=== PATIENT | male | born 1975 | race Caucasian/White ===

== ENCOUNTER 2024-04-10 23:00 | Emergency (ER) | payer BC, SELFPAY ==
--- NOTE | ~2024-04-10 | XR_ITS ---
CLINICAL HISTORY: cp 2 view chest x-ray Comparison: None Findings: The lungs are clear. Heart size is normal. No acute fracture. IMPRESSION: 1. No acute findings. This document has been electronically signed by: Fernando Vega MD on 04/11/2024 00:07:53
--- NOTE | 2024-04-10 23:03 | ECG_ITS ---
Test Reason : CHEST PAIN Blood Pressure : / mmHG Vent. Rate : 079 BPM Atrial Rate : 079 BPM P-R Int : 130 ms QRS Dur : 080 ms QT Int : 350 ms P-R-T Axes : 055 010 -11 degrees QTc Int : 401 ms Normal sinus rhythm Normal ECG No previous ECGs available Referred By: Generic ED Physician Electronically Signed By:JOAQUIN MCNULTY MD
[2024-04-10 23:09] VITALS: BP 171/102; PULSE 90; RESP 20; TEMP 36.6; O2SAT 99; BMI 28.2
[2024-04-10 23:27] LABS: MANUAL DIFF FLAG NO
[2024-04-10 23:28] LABS: Basophils Absolute Auto 0.1 X10*3/uL (0.0-0.2); Basophils Percent Auto 0.9 % (0-2); Eosinophils Absolute Auto 0.2 X10*3/uL (0.0-0.4); Hematocrit 45.2 % (42.0-52.0); Hemoglobin 15.9 g/dl (14.0-18.0); Imm Gran Abs Auto 0.04 X10*3/uL (0.00-0.03); Imm Gran Pct Auto 0.5 % (0.0-0.4); Lymphocytes Absolute Auto 3.2 X10*3/uL (1.2-4.9); Lymphocytes Percent Auto 40.9 % (20-40); Mean Corpuscular HGB Conc 35.2 g/dl (31.0-36.0); Mean Corpuscular Hemoglobin 29.2 pg (27.0-33.0); Mean Corpuscular Volume 82.9 fL (80.0-98.0); Mean Platelet Volume 10.4 fL (9.4-12.4); Monocytes Absolute Auto 0.5 X10*3/uL (0.1-1.2); Monocytes Percent Auto 6.8 % (2-11); Neutrophils Absolute Auto 3.8 x10*3/uL (2.0-8.3); Neutrophils Percent Auto 47.9 % (45-73); Platelet Count 203 X10*3/uL (160-400); Red Blood Count 5.45 X10*6/uL (4.60-5.80); Red Cell Distribution Width 13.6 % (11.0-16.0); White Blood Count 7.9 X10*3/uL (4.8-10.8)
[2024-04-10 23:48] LABS: Troponin-I High Sensitivity 35.1 ng/L (<3.5-35.0)
--- NOTE | 2024-04-10 23:59 | ED.CHESTPAIN ---
HPI - Chest Pain General Chief Complaint: Chest Pain Stated Complaint: Chest Pain Time Seen by Provider: 04/10/24 23:36 Source: patient Mode of arrival: ambulatory Limitations: no limitations History of Present Illness ED Provider: HPI narrative: Patient no significant past medical history noticed acute onset of sharp pain just prior to arrival while patient is trying to lay down lasted only for few seconds happened several times no diaphoresis no jaw pain or arm pain nausea no vomiting pain was worse with movements and deep inspiration patient does not have any cough or shortness a breath never had similar chest pain in the past Related Data Allergies Allergy/AdvReac Type Severity Reaction Status Date / Time No Known Allergies Allergy Unverified 04/10/24 23:11 [No Known Allergies*] Review of Systems Review of Systems: Yes all other systems are reviewed and are negative [facility] Social History Social History Advance Directives: No Advance Directives Information Provided: Yes Physical Exam Vital Signs: Vital Signs: Last Vital Signs Temp 98.7 F 04/11/24 02:15 Pulse 88 04/11/24 02:15 Resp 18 04/11/24 02:15 BP 125/77 04/11/24 02:15 Pulse Ox 99 04/11/24 02:15 O2 Del Method Room Air 04/11/24 02:15 BMI result Body Mass Index 28.2 Appearance: Alert. Oriented X3. No acute distress. Eyes: No pallor or icterus ENT: Pharynx normal. Oral Mucosa moist Neck: Normal inspection. Neck supple. CVS: Normal heart rate and rhythm. Pulses normal. No murmur rub or gallop no pericardial rub Respiratory: No respiratory distress. Equal air entry bilateral, no wheezing/rales/rhonchi Abdomen: Soft and nontender. Bowel sounds are present, Skin: Skin warm and dry. Normal skin color. Normal skin turgor. Extremities: No lower extremity edema. No calf tenderness Neuro: Oriented X 3. No motor deficit. Medications Administered Discontinued Medications Generic Name Dose Route Start Last Admin Trade Name Freq PRN Reason Stop Dose Admin Aspirin 162 mg 04/11/24 00:05 04/11/24 00:31 Aspirin 81 Mg Tab.Chew PO 04/11/24 00:06 162 mg ONCE ONE Administration Medical Decision Making Medical Decision Making [facility] Narrative: Patient has atypical chest pain with normal cardiogram initial troponin was elevated to 35.1 likely troponin leak will repeat the troponin patient does not have any chest pain at this time will give baby aspirin heart score is [address] [facility] Lab Attestation statement: I reviewed the patient's lab results. 04/10/24 23:23 04/10/24 23:23 Labs: Lab Results 04/10/24 04/11/24 Range/Units 23:23 01:38 WBC 7.9 (4.8-10.8) X10*3/uL RBC 5.45 (4.60-5.80) X10*6/uL Hgb 15.9 (14.0-18.0) g/dl Hct 45.2 (42.0-52.0) % MCV 82.9 (80.0-98.0) fL MCH 29.2 (27.0-33.0) pg MCHC 35.2 (31.0-36.0) g/dl RDW 13.6 (11.0-16.0) % Plt Count 203 (160-400) X10*3/uL MPV 10.4 (9.4-12.4) fL Immature Gran % (Auto) 0.5 H (0.0-0.4) % Neut % (Auto) 47.9 (45-73) % Lymph % (Auto) 40.9 H (20-40) % [place] % (Auto) 6.8 (2-11) % Eos % (Auto) 3.0 (0-4) % Baso % (Auto) 0.9 (0-2) % Lymph # (Auto) 3.2 (1.2-4.9) X10*3/uL [place] # (Auto) 0.5 (0.1-1.2) X10*3/uL Eos # (Auto) 0.2 (0.0-0.4) X10*3/uL Baso # (Auto) 0.1 (0.0-0.2) X10*3/uL Abs Immat Gran (auto) 0.04 H (0.00-0.03) X10*3/uL Absolute Neuts (auto) 3.8 (2.0-8.3) x10*3/uL Absolute Nucleated RBC 0.000 (0.0-0.012) X10*3/uL Nucleated RBC % (auto) 0.0 (0.0-0.2) /100WBC Sodium 141 (135-145) mmol/L Potassium 4.2 (3.3-5.1) mmol/L Chloride 112 H (96-108) mmol/L Carbon Dioxide 19 L (22-29) mmol/L Anion Gap 14 (12-20) BUN 20 H (9-16) mg/dL Creatinine 0.93 (0.5-1.4) mg/dL Estim Creat Clear Calc 105.8 Estimated GFR > 60 Random Glucose 119 H (60-115) mg/dL Calcium 8.7 (8.4-10.2) mg/dL Total Bilirubin 0.4 (0.0-1.0) mg/dL AST 39 H (5-37) U/L ALT 62 H (0-40) U/L Alkaline Phosphatase 82 (39-117) U/L Troponin I High Sens 35.1 H 36.9 H (<3.5-35.0) ng/L Total Protein 7.1 (6.5-8.0) g/dL Albumin 4.2 (3.5-5.0) g/dL Independent Interpretation I performed an independent interpretation of an: EKG Interpretation: Normal sinus rhythm heart rate 79 beats minute normal intervals no acute ST-T changes no acute ischemia Scores Heart Score History: -0- slightly suspicious ECG: -0- normal Age: -1- >45 - <65 Risk factory: -0- no risk factors known Troponin: -1- >1 - <3x normal limit Score: 2 Risk: 1.7% Discharge Plan Discharge Clinical Impression: Chest pain Patient Disposition: Home, Self-Care Instructions: Chest Pain (ED) Additional Instructions: Cause of your chest pain is not clear likely musculoskeletal/pleuritic Follow with your PCP for further managed Follow with financial supervisor Referrals: Parish Cook MD [Physician] - 1 week Interventions: ED Discharge Assessment Last Done: 04/11/24 02:15 Discharge Date/Time: 04/11/24 02:17 Print Language: [place]
[2024-04-11 00:02] LABS: Alanine Aminotransferase 62 U/L (0-40); Albumin Level 4.2 g/dL (3.5-5.0); Alkaline Phosphatase 82 U/L (39-117); Anion Gap 14 (12-20); Aspartate Amino Transferase 39 U/L (5-37); Bilirubin Total 0.4 mg/dL (0.0-1.0); Blood Urea Nitrogen 20 mg/dL (9-16); Calcium 8.7 mg/dL (8.4-10.2); Carbon Dioxide 19 mmol/L (22-29); Chloride 112 mmol/L (96-108); Creatinine Clr Calc Pharmacy 105.8; Estimated Glomerular Filt Rate > 60; Glucose Random 119 mg/dL (60-115); Potassium 4.2 mmol/L (3.3-5.1); Sodium 141 mmol/L (135-145); Total Protein 7.1 g/dL (6.5-8.0)
[2024-04-11 00:06] VITALS: BP 125/77; PULSE 77; RESP 18; TEMP 36.9; O2SAT 96
[2024-04-11] MEDS: Aspirin 81 MG TAB.CHEW 162 MG PO (00:31)
[2024-04-11 02:04] LABS: Troponin-I High Sensitivity 36.9 ng/L (<3.5-35.0)
[2024-04-11 02:15] VITALS: BP 125/77; PULSE 88; RESP 18; TEMP 37.1; O2SAT 99
== END 2024-04-11 02:17 | disposition home or self-care (01) ==
PROVIDERS: Emergency Provider Internal Medicine; PCP Internal Medicine
DX: R07.89 Other chest pain (principal); Z79.899 Other long term (current) drug therapy
CPT/HCPCS: 36415; 71046; 80053; 84484; 85025; 93005; 99283; 99284

== ENCOUNTER → 2024-04-10 23:03 | Outpatient (BNV) | payer BC, SELFPAY | PROVIDERS: Emergency Provider Internal Medicine; PCP Internal Medicine; Visit Provider Internal Medicine Cardiovascular Disease | DX: R07.9 Chest pain, unspecified (principal) | CPT/HCPCS: 93010 ==

== ENCOUNTER → 2024-04-10 23:25 | Outpatient (BNV) | payer BC, SELFPAY | PROVIDERS: Emergency Provider Internal Medicine; PCP Internal Medicine; Visit Provider Student in an Organized Health Care Education/Training Program | DX: R07.9 Chest pain, unspecified (principal) | CPT/HCPCS: 71046 ==